=== PATIENT | female | born 1985 | race Caucasian/White ===

== ENCOUNTER 2021-06-02 16:48 | Emergency (ER) | payer MEDICAID ==
[~2021-06-02] VITALS: Ht 160 cm; Wt 53.5 kg
[~2021-06-02 16:48] MED LIST: ACHYD1T PO; ALBU2TAB38 GT; AMOX500T2 PO; CPR500T PO; DCS100C PO; IBP600T1 PO; PHEN200T27 PO; PRE-NATAL VITAMINS; SERT25TA PO; TRM50T PO
--- NOTE | 2021-06-02 16:56 | ED General ---
General Stated Complaint: HIGH HEART RATE Source of Information: Patient Exam Limitations: No Limitations (BRYANNA LOPEZ APRN) History of Present Illness Date Seen by Provider: Jun 02, 2021 Time Seen by Provider: 16:52 Initial Comments To ER by [facility] with reports of irregular heart rate. She states that around 3:45 PM during a coughing fit she developed a sensation of palpitations. No fevers or chills. No nausea or vomiting. She found her heart rate to be in the 180s at home. She has a history of SVT and has been in it several times before. Today will be about her third or fourth episode over the past 4 or 5 years. She takes metoprolol for it. Has not missed any doses. She does smoke cigarettes daily. Denies drug use. She drinks "a few shots" every night. Timing/Duration: 1-2 Days Severity: Moderate Associated Systoms: Denies Symptoms (BRYANNA LOPEZ APRN) Allergies and Home Medications Allergies Coded Allergies: No Known Drug Allergies (Unverified , 09/27/12) Patient Home Medication List Home Medication List Reviewed: Yes (BRYANNA LOPEZ APRN) Albuterol Sulf (Ventolin Tab) 2 Mg Tab, 2 MG GT PRN, (Reported) Entered as Reported by: ANTONIA BOYD on 05/21/14516 Amoxicillin Trihydrate (Amoxicillin) 500 Mg Tablet, 500 MG PO BID, (Reported) Entered as Reported by: ANTONIA BOYD on 05/21/14516 Docusate Sodium (Colace) 100 Mg Cap, 100 MG PO BID PRN for CONSTIPATION Prescribed by: MAISHA VERAS on 05/22/14936 Hydrocodone Bit/Acetaminophen (Lorcet Plus 10/325 Mg) 1 Ea Tab, 1-2 EA PO Q3HR PRN for PAIN Prescribed by: MAISHA VERAS on 05/22/14936 Ibuprofen (Motrin Tablet) 600 Mg Tab, 600 MG PO Q6H PRN for PAIN Prescribed by: MAISHA VERAS on 05/22/14936 Sertraline Hcl (Zoloft) 25 Mg Tablet, 25 MG PO DAILY, (Reported) Entered as Reported by: ANTONIA BOYD on 05/21/14516 [Pre-Trip Vitamins] , DAILY, (Reported) Entered as Reported by: SHANEL ZAVALA on 01/19/14 0923 Review of Systems Review of Systems Constitutional: see HPI EENTM: see HPI Respiratory: no symptoms reported Cardiovascular: no symptoms reported, palpitations Genitourinary: no symptoms reported Musculoskeletal: no symptoms reported Skin: no symptoms reported Psychiatric/Neurological: No Symptoms Reported Hematologic/Lymphatic: No Symptoms Reported Immunological/Allergic: no symptoms reported (BRYANNA LOPEZ APRN) Physical Exam Vital Signs Vital Signs - First Documented 06/02/21 16:50 Temp 37.3 Pulse 99 Resp 20 B/P (MAP) 167/120 (136) Pulse Ox 98 O2 Delivery Room Air (CARLOS LEWIS MD) Vital Signs Capillary Refill : (BRYANNA LOPEZ APRN) Height, Weight, BMI Height: '" Weight: lbs. oz. kg; BMI Method: General Appearance: No Apparent Distress, WD/WN Eyes: Bilateral Eye Normal Inspection, Bilateral Eye PERRL, Bilateral Eye EOMI Neck: Full Range of Motion, Normal Inspection Respiratory: No Accessory Muscle Use, No Respiratory Distress Cardiovascular: Regular Rate, Rhythm, Normal Peripheral Pulses, Other (EMS did give 6 mg of adenosine in the ambulance bay just before bringing her inside which has converted her and upon arrival to ER room #2 she has a heart rate of 111.) Gastrointestinal: Normal Bowel Sounds, Non Tender, Soft Extremity: Normal Capillary Refill, Normal Inspection Neurologic/Psychiatric: Alert, Oriented x3 Skin: Normal Color, Warm/Dry (None) (BRYANNA LOPEZ APRN) Progress/Results/Core Measures Suspected Sepsis SIRS Temperature: Pulse: Respiratory Rate: Laboratory Tests 06/02/21 17:00: White Blood Count 4.8 Blood Pressure / Mean: Laboratory Tests 06/02/21 17:00: Creatinine 0.70, INR Comment 1.0, Platelet Count 147, Total Bilirubin 0.4 (BRYANNA LOPEZ APRN) Results/Orders Lab Results Laboratory Tests Test 06/02/21 17:00 Range/Units White Blood Count 4.8 4.3-11.0 10^3/uL Red Blood Count 4.38 3.80-5.11 10^6/uL Hemoglobin 14.1 11.5-16.0 g/dL Hematocrit 42 35-52 % Mean Corpuscular Volume 96 80-99 fL Mean Corpuscular Hemoglobin 32 25-34 pg Mean Corpuscular Hemoglobin Concent 33 32-36 g/dL Red Cell Distribution Width 12.5 10.0-14.5 % Platelet Count 147 130-400 10^3/uL Mean Platelet Volume 10.4 9.0-12.2 fL Immature Granulocyte % (Auto) 0 % Neutrophils (%) (Auto) 67 42-75 % Lymphocytes (%) (Auto) 16 12-44 % Monocytes (%) (Auto) 11 0-12 % Eosinophils (%) (Auto) 4 0-10 % Basophils (%) (Auto) 1 0-10 % Neutrophils # (Auto) 3.3 1.8-7.8 10^3/uL Lymphocytes # (Auto) 0.8 L 1.0-4.0 10^3/uL Monocytes # (Auto) 0.5 0.0-1.0 10^3/uL Eosinophils # (Auto) 0.2 0.0-0.3 10^3/uL Basophils # (Auto) 0.1 0.0-0.1 10^3/uL Immature Granulocyte # (Auto) 0.0 0.0-0.1 10^3/uL Prothrombin Time 13.2 12.2-14.7 SEC INR Comment 1.0 0.8-1.4 Sodium Level 138 135-145 MMOL/L Potassium Level 3.4 L 3.6-5.0 MMOL/L Chloride Level 104 98-107 MMOL/L Carbon Dioxide Level 21 21-32 MMOL/L Anion Gap 13 5-14 MMOL/L Blood Urea Nitrogen 7 7-18 MG/DL Creatinine 0.70 0.60-1.30 MG/DL Estimat Glomerular Filtration Rate 113 BUN/Creatinine Ratio 10 Glucose Level 133 H 70-105 MG/DL Calcium Level 8.6 8.5-10.1 MG/DL Corrected Calcium 8.6 8.5-10.1 MG/DL Magnesium Level 1.5 L 1.6-2.4 MG/DL Total Bilirubin 0.4 0.1-1.0 MG/DL Aspartate Amino Transf (AST/SGOT) 109 H 5-34 U/L Alanine Aminotransferase (ALT/SGPT) 53 0-55 U/L Alkaline Phosphatase 96 40-136 U/L Troponin I < 0.028 <0.028 NG/ML Total Protein 7.1 6.4-8.2 GM/DL Albumin 4.0 3.2-4.5 GM/DL Serum Test, Qualitative NEGATIVE NEGATIVE Serum Alcohol < 10 <10 MG/DL (CARLOS LEWIS MD) Medications Given in ED Current Medications Medications Dose Ordered Sig/Hunter Route Start Time Stop Time Status Last Admin Dose Admin Lorazepam 1 mg ONCE ONCE IVP 06/02/21 18:00 06/02/21 18:01 DC 06/02/21 17:56 1 MG Magnesium Oxide 400 mg ONCE ONCE PO 06/02/21 18:00 06/02/21 18:01 DC 06/02/21 17:56 400 MG (CARLOS LEWIS MD) Vital Signs/I&O 06/02/21 06/02/21 16:50 18:05 Temp 37.3 Pulse 99 107 Resp 20 12 B/P (MAP) 167/120 (136) 159/110 Pulse Ox 98 96 O2 Delivery Room Air Room Air (CARLOS LEWIS MD) Vital Signs/I&O Capillary Refill : (BRYANNA LOPEZ APRN) Departure Communication (Admissions) 1714 EKG shows sinus rhythm at 98 no ectopy normal intervals minimal ST depression in lead III and aVF no ST elevation. No chest pain. 175-ordered a milligram of lorazepam given that she is still tachycardic with a rate of 101 blood pressure of 160/110 and she reports that she drinks alcohol every evening with a negative alcohol level here this may represent some withdrawal symptoms. I will give her some p.o. magnesium and discharged home. (BRYANNA LOPEZ APRN) Impression Primary Impression: SVT (supraventricular tachycardia) Disposition: HOME, SELF-CARE Condition: Stable Departure-Patient Inst. Decision time for Depature: 16:54 (BRYANNA LOPEZ APRN) Patient Instructions: Supraventricular Tachycardia (SVT) Add. Discharge Instructions: 1. Return to ER for any concerns or worsening symptoms. Follow-up with your doctor next week. ATTENDING PHYSICIAN NOTE: I was physically present as attending physician in the emergency department during the care of this patient, but I was not directly involved in the decision making or delivery of care for this patient. (CARLOS LEWIS MD) BRYANNA LOPEZ APRN Jun 02, 2021 16:56 CAROLS LEWIS MD Jun 02, 2021 19:29
[2021-06-02 17:21] LABS: BASOPHILS # (AUTO) 0.1 10^3/uL (0.0-0.1); BASOPHILS % (AUTO) 1 % (0-10); EOSINOPHILS # (AUTO) 0.2 10^3/uL (0.0-0.3); EOSINOPHILS % (AUTO) 4 % (0-10); HEMATOCRIT 42 % (35-52); HEMOGLOBIN 14.1 g/dL (11.5-16.0); LYMPHOCYTES # (AUTO) 0.8 10^3/uL (1.0-4.0); LYMPHOCYTES % (AUTO) 16 % (12-44); MEAN CORPUSCULAR HEMOGLOBIN 32 pg (25-34); MEAN CORPUSCULAR HGB CONC 33 g/dL (32-36); MEAN CORPUSCULAR VOLUME 96 fL (80-99); MEAN PLATELET VOLUME 10.4 fL (9.0-12.2); MONOCYTES # (AUTO) 0.5 10^3/uL (0.0-1.0); MONOCYTES % (AUTO) 11 % (0-12); NEUTROPHILS # (AUTO) 3.3 10^3/uL (1.8-7.8); NEUTROPHILS % (AUTO) 67 % (42-75); PLATELET COUNT 147 10^3/uL (130-400); WHITE BLOOD COUNT 4.8 10^3/uL (4.3-11.0)
[2021-06-02 17:26] LABS: CHLORIDE 104 MMOL/L (98-107); POTASSIUM 3.4 MMOL/L (3.6-5.0); SODIUM 138 MMOL/L (135-145)
[2021-06-02 17:27] LABS: CALCIUM 8.6 MG/DL (8.5-10.1); PROTHROMBIN TIME PATIENT 13.2 SEC (12.2-14.7)
[2021-06-02 17:28] LABS: GLUCOSE 133 MG/DL (70-105); TOTAL PROTEIN 7.1 GM/DL (6.4-8.2)
[2021-06-02 17:29] LABS: CARBON DIOXIDE 21 MMOL/L (21-32)
[2021-06-02 17:30] LABS: BILIRUBIN,TOTAL 0.4 MG/DL (0.1-1.0)
[2021-06-02 17:32] LABS: ALKALINE PHOSPHATASE 96 U/L (40-136); GFR ESTIMATED 113
[2021-06-02 17:33] LABS: BUN/CREATININE RATIO 10
[2021-06-02 17:35] LABS: ALANINE AMINOTRANSFERASE 53 U/L (0-55); MAGNESIUM 1.5 MG/DL (1.6-2.4)
[2021-06-02] MEDS ORDERED: fentaNYL INJ 100 MCG/2 ML AMP IVP PRN (17:45)
[2021-06-02] MEDS ORDERED: MAGNESIUM OXIDE (MAG-OX)400 MG TAB PO ONE (18:00)
[2021-06-02] MEDS ORDERED: LORazepam INJ 2 MG/ML (ATIVAN) VIAL IVP ONE (18:00)
[2021-06-02 18:05] VITALS: BP 159/110
== END 2021-06-02 18:06 | disposition home or self-care (01) ==
LOC: EDUNIT# 16:48 → ER 16:54
DX: I47.1 Supraventricular tachycardia (principal); F17.210 Nicotine dependence, cigarettes, uncomplicated
CPT/HCPCS: 80053; 83735; 84484; 84703; 85025; 85610; 99284; G0480; 36415; 80320

== ENCOUNTER 2022-08-10 19:58 | Emergency (ER) | payer SELFPAY ==
--- NOTE | 2022-08-10 20:20 | ED Cardiac General ---
History of Present Illness General Chief Complaint: Cardiac/General Problems Stated Complaint: SVT Source: patient Exam Limitations: no limitations History of Present Illness Date Seen by Provider: August 10, 2022 Time Seen by Provider: 20:12 Initial Comments Patient is a 37-year-old female who presents to the emergency room with a chief complaint of palpitations/SVT. Patient has a history of SVT is on medications for maintenance as well as for blood pressure. She states over the last week she has been very constipated having to strain to have bowel movements and has not had one. She states that she was getting her kids ready to get in the truck and go to the store for medications for her constipation when she felt herself flipped into SVT. Patient received 6 mg of adenosine prior to arrival per EMS which cardioverted her. Her current blood pressure is quite hypertensive 180s over 90s. Her heart rate is down to 100. She feels better. She states she probably has not been drinking enough water. She denies any fevers, chills, sore throat or runny nose. She has had a mild cough. She has a history of asthma with continued smoking. Occasionally has to use inhalers. No other complaints of recent illness or injury. Timing/Duration: 1/2 hour Severity: moderate Location: central Activities at Onset: activity (getting in her truck) Prior CP/Workup: other (h/o SVT) NTG SL DIRECTOR OF SECURITIES AND REAL ESTATE: No ASA po DIRECTOR OF SECURITIES AND REAL ESTATE: No Associated Systoms: Cough, Other (constipation) Allergies and Home Medications Allergies Coded Allergies: acetaminophen (Verified Allergy, Unknown, 08/10/22) alprazolam (Verified Allergy, Unknown, 08/10/22) hydrocodone (Verified Allergy, Unknown, 08/10/22) Patient Home Medication List Home Medication List Reviewed: Yes Albuterol Sulf (Ventolin Tab) 2 Mg Tab, 2 MG GT PRN, (Reported) Entered as Reported by: ANTONIA BOYD on 05/21/14516 Amoxicillin Trihydrate (Amoxicillin) 500 Mg Tablet, 500 MG PO BID, (Reported) Entered as Reported by: ANTONIA BOYD on 05/21/14516 Docusate Sodium (Colace) 100 Mg Cap, 100 MG PO BID PRN for CONSTIPATION Prescribed by: MAISHA VERAS on 05/22/14 0937 Hydrocodone Bit/Acetaminophen (Lorcet Plus 10/325 Mg) 1 Ea Tab, 1-2 EA PO Q3HR PRN for PAIN Prescribed by: MAISHA VERAS on 05/22/14936 Ibuprofen (Motrin Tablet) 600 Mg Tab, 600 MG PO Q6H PRN for PAIN Prescribed by: MAISHA VERAS on 05/22/14936 Sertraline Hcl (Zoloft) 25 Mg Tablet, 25 MG PO DAILY, (Reported) Entered as Reported by: ANTONIA BOYD on 05/21/14 0517 [Pre- Vitamins] , DAILY, (Reported) Entered as Reported by: SHANEL ZAVALA on 01/19/14 09 Review of Systems Review of Systems Constitutional: see HPI Respiratory: No Symptoms Reported Cardiovascular: Palpitations Gastrointestinal: No Symptoms Reported Genitourinary: No Symptoms Reported Musculoskeletal: no symptoms reported Skin: no symptoms reported Psychiatric/Neurological: No Symptoms Reported All Other Systems Reviewed Negative Unless Noted: Yes Past Afbjxwc-Hguons-Wwjzon Hx Seasonal Allergies Seasonal Allergies: Yes Past Medical History Section, Tonsillectomy Asthma Reproductive Disorders: No Female Reproductive Disorders: Denies Kidney Infection, UTI-Chronic Arthritis Suicide Attempts, Depression Psoriasis Family Medical History Arthritis Asthma Cardiovascular disease 19 FATHER 19 MOTHER Completed stroke 19 FATHER Diabetes mellitus 19 MOTHER (MGM) Drug abuse 19 MOTHER (aunt) Headache disorder 19 FATHER G8 BROTHER Hypercholesterolemia Hypertension Neoplasm Osteoporosis Psychosocial problem Severe allergy 19 MOTHER No Family History of: AIDS Abdominal aortic aneurysm Anselmo's disease Alcoholism Alzheimer's disease Aphasia Cancer of mouth Cataracts Colon cancer Congenital disease Congenital heart disease Coronary thrombosis Cystic fibrosis Deafness or hearing loss Dementia Dysphasia Fibrocystic disease of breast Gastroenteritis Glaucoma Infertility Kidney disease Myocardial infarction Not obtainable due to adoption Parkinson's disease Prostate cancer Respiratory disorder Seizure disorder Thyroid disease Tuberculosis Visual disorder No Pertinent Family Hx Physical Exam Vital Signs Vital Signs - First Documented 08/10/22 20:00 Temp 36.7 Pulse 87 Resp 16 B/P (MAP) 188/105 (132) Pulse Ox 98 O2 Delivery Room Air Capillary Refill : Height, Weight, BMI Height: 5'3.00" Weight: 158lbs. oz. [id number]; 20.00 BMI Method:Stated General Appearance: No Apparent Distress, WD/WN HEENT: PERRL/EOMI Neck: Normal Inspection Respiratory: Lungs Clear, Normal Breath Sounds, No Accessory Muscle Use, No Re spiratory Distress Cardiovascular: Regular Rate, Rhythm (87 bpm), Normal Peripheral Pulses Gastrointestinal: Non Tender, Soft Extremity: Normal Inspection Neurologic/Psychiatric: Alert, Oriented x3, No Motor/Sensory Deficits, Normal Mood/Affect, heading repairer II-XII Norm as Tested Skin: Normal Color, Warm/Dry Progress/Results/Core Measures Results/Orders Lab Results Laboratory Tests Test 08/10/22 20:08 Range/Units Sodium Level 139 135-145 MMOL/L Potassium Level 3.3 L 3.6-5.0 MMOL/L Chloride Level 108 H 98-107 MMOL/L Carbon Dioxide Level 21 21-32 MMOL/L Anion Gap 10 5-14 MMOL/L Blood Urea Nitrogen 12 7-18 MG/DL Creatinine 0.80 0.60-1.30 MG/DL Estimat Glomerular Filtration Rate 96 BUN/Creatinine Ratio 15 Glucose Level 132 H 70-105 MG/DL Calcium Level 8.5 8.5-10.1 MG/DL My Orders Orders - EARL RIDER MD Ekg Tracing (08/10/22 20:01) Basic Metabolic Panel (08/10/22 20:17) Magnesium Hydroxide Oral Susp (Mom Oral (08/10/22 21:15) Medications Given in ED Current Medications Medications Dose Ordered Sig/Hunter Route Start Time Stop Time Status Last Admin Dose Admin Magnesium Hydroxide 30 ml ONCE ONCE PO 08/10/22 21:15 08/10/22 21:16 DC 08/10/22 21:46 30 ML Vital Signs/I&O 08/10/22 08/10/22 20:00 21:47 Temp 36.7 36.7 Pulse 87 94 Resp 16 16 B/P (MAP) 188/105 (132) 162/115 Pulse Ox 98 97 O2 Delivery Room Air Room Air 08/10/22 23:59 Intake Total 100 ml Balance 100 ml Initial ECG Impression Date: August 10, 2022 Initial ECG Impression Time: 20:15 Initial ECG Rate: 87 Initial ECG Rhythm: Normal Sinus Initial ECG Intervals: Normal Initial ECG Impression: Normal Departure Impression Primary Impression: SVT (supraventricular tachycardia) Additional Impression: Constipation Qualified Codes: K59.00 - Constipation, unspecified Disposition: HOME, SELF-CARE Condition: Improved Departure-Patient Inst. Decision time for Depature: 21:07 Referrals: NO,LOCAL PHYSICIAN (PCP/Family) Primary Care Physician Patient Instructions: Supraventricular Tachycardia (SVT) Add. Discharge Instructions: Drink plenty of fluids to stay well-hydrated. Please continue your daily medications as prescribed. Mag citrate [id number] to help with constipation. We have given you a dose here in the emergency department. Please follow-up with Dr. De Jesus, your ductfixing plumber. Return to the emergency department for any new, concerning or emergent c omplaints. Work/School Note: Family Work Note Patient Received Medical Care In the Emergency Department On: August 10, 2022 Patient Will Be Able to Return to Work/School On: August 11, 2022 EARL RIDER MD August 10, 2022 20:20
[2022-08-10 20:35] LABS: CALCIUM 8.5 MG/DL (8.5-10.1); CREATININE SERUM 0.8 MG/DL (0.60-1.30); POTASSIUM 3.3 MMOL/L (3.6-5.0)
[2022-08-10] MEDS ORDERED: MILK OF MAGNESIA 400 MG/5 ML 30 ML UDC PO ONE (21:15)
[2022-08-10 21:47] VITALS: BP 162/115
== END 2022-08-10 21:47 | disposition home or self-care (01) ==
LOC: EDUNIT# 19:58 → ER 19:59
DX: I47.1 Supraventricular tachycardia (principal); K59.00 Constipation, unspecified; I10 Essential (primary) hypertension; J45.909 Unspecified asthma, uncomplicated; F17.200 Nicotine dependence, unspecified, uncomplicated; Z79.52 Long term (current) use of systemic steroids; Z79.899 Other long term (current) drug therapy; Z28.310 Unvaccinated for COVID-19
CPT/HCPCS: 36415; 80048; 93005